=== PATIENT | female | born 1995 | race Caucasian/White ===

== ENCOUNTER → 2021-03-17 17:06 | Outpatient (BNVA) | payer SELFPAY | PROVIDERS: Visit Provider Family Medicine | DX: U07.1 COVID-19 (principal) | CPT/HCPCS: 87400; 87635; 87801 ==

== ENCOUNTER → 2021-04-16 14:15 | Outpatient (BNVA) | payer SELFPAY | PROVIDERS: Visit Provider Internal Medicine Cardiovascular Disease | DX: I47.1 Supraventricular tachycardia (principal); R00.2 Palpitations | CPT/HCPCS: 80053; 84443; 85025 ==